=== PATIENT | female | born 1970 | race Caucasian/White ===

== ENCOUNTER → 2022-02-17 11:20 | Outpatient (BNVA) | payer MEDICAID, SELFPAY | PROVIDERS: PCP Family Medicine; Visit Provider Family Medicine | DX: I10 Essential (primary) hypertension (principal); E03.9 Hypothyroidism, unspecified; N93.8 Other specified abnormal uterine and vaginal bleeding | CPT/HCPCS: 80053; 80061; 83036; 84443; 85025 ==